=== PATIENT | male | born 1985 | race Caucasian/White ===

== ENCOUNTER 2017-01-11 15:01 | Emergency (ER) | payer OTHER ==
[~2017-01-11] VITALS: Ht 170.2 cm; Wt 72.0 kg
[2017-01-11] MEDS ORDERED: DIPH,PERTUSS(ACELL),TET VAC/PF 0.5 ML IM-VACC ONE ×2 (15:55→16:00)
[2017-01-11] MEDS ORDERED: ONDANSETRON 2MG/ML, 2ML ONE (15:55)
[2017-01-11] MEDS ORDERED: HYDROmorphone 1 MG/ML, 1ML ONE ×2 (15:55→17:55)
[2017-01-11] MEDS ORDERED: BUPIVACAINE/PF-EPI 0.25% 1:200K SQ ONE (16:00)
[2017-01-11] MEDS ORDERED: ONDANSETRON 2MG/ML, 2ML IVPush ONE (16:00)
[2017-01-11 16:02] LABS: HEMOGLOBIN 14.8 g/dL (13.7-18.0); WHITE BLOOD COUNT 7.4 x10^3/uL (3.4-10)
[2017-01-11] MEDS: HYDROmorphone 1 MG/ML, 1ML IVPush PRN ×2 (16:03→18:00)
[2017-01-11] MEDS ORDERED: BUPIVACAINE 0.25% ONE (17:13)
[2017-01-11] MEDS ORDERED: CEFAZOLIN PMX 1GM/50ML 50 ML ONE (18:26)
[2017-01-11] MEDS ORDERED: CEFAZOLIN PMX 1GM/50ML 50 ML IVPB ONE (18:30)
[2017-01-11] MEDS ORDERED: KETOROLAC 30 MG/1 ML ONE (18:51)
[2017-01-11] MEDS ORDERED: KETOROLAC 30 MG/1 ML IVPush ONE (19:00)
[2017-01-11 19:43] VITALS: BP 151/77
== END 2017-01-11 19:46 | disposition home or self-care (01) ==
LOC: ED 19:40
DX: S01.311A Laceration without foreign body of right ear, initial encounter (principal); S10.93XA Contusion of unspecified part of neck, initial encounter; J45.909 Unspecified asthma, uncomplicated; X58.XXXA Exposure to other specified factors, initial encounter; Y93.89 Activity, other specified; Y92.009 Unspecified place in unspecified non-institutional (private) residence as the place of occurrence of the external cause; Y99.8 Other external cause status
CPT/HCPCS: 12011; 36415; 70498; 72072; 72125; 85025; 90471; 90715; 96365; 96375; 96376; 99285; J0690; J1170; J1885; J2405